=== PATIENT | male | born 1965 | race Caucasian/White ===

== ENCOUNTER 2018-05-29 19:35 | Inpatient (IN) ==
[2018-05-29] MEDS ORDERED: ONDANSETRON INJ 2 MG/ML 2 ML VIAL IV STA (20:00)
[2018-05-29] MEDS ORDERED: SODIUM CHLORIDE 0.9% 500 ML IV STA (20:00)
[2018-05-29] MEDS ORDERED: MoRPHine SULFATE 4 MG/ML 1 ML CARP\\VIAL IV STA ×2 (20:00→22:53)
[2018-05-29 20:16] LABS: Basophils # (auto) 0.02 K/uL (0-0.2); Basophils % (auto) 0.2 %; Eosinophils # (auto) 0.17 K/uL (0-0.5); Eosinophils % (auto) 1.3 %; Hematocrit (blood only) 39.8 % (42-52); Hemoglobin 13.5 g/dL (14.0-18.0); Immature Granulocytes # (auto) 0.03 K/uL (0.00-0.02); Immature Granulocytes % (auto) 0.2 %; Lymphocytes # (auto) 1.61 K/uL (1.2-3.4); Lymphocytes % (auto) 12.1 %; Mean Corpuscular Hgb Conc 33.9 g/dL (32-36); Mean Corpuscular Volume 92.1 fL (80-100); Mean Platelet Volume 9.3 fL (7.4-10.4); Monocytes # (auto) 0.78 K/uL (0.11-0.59); Monocytes % (auto) 5.9 %; Neutrophils % (auto) 80.3 %; Platelet Count 237 K/uL (130-400); RDW Coefficient of Variation 12.5 % (11.5-14.5); RDW Standard Deviation 42.4 fL (36.4-46.3); Red Blood Count 4.32 M/uL (4.7-6.1); White Blood Count 13.31 K/uL (4.8-10.8)
[2018-05-29 20:27] LABS: Partial Thromboplastin Ratio 1.2; Partial Thromboplastin Time 29.9 Seconds (21.0-31.0); Prothrombin Time 10.5 Seconds (9.0-12.0)
[2018-05-29 20:33] LABS: Alanine Aminotransferase 21 U/L (12-78); Albumin Level 3.5 gm/dl (3.4-5.0); Aspartate Aminotransferase 15 U/L (15-37); Blood Urea Nitrogen 17 mg/dl (7-18); Carbon Dioxide 27 mmol/L (21-32); Chloride 100 mmol/L (98-107); Creatinine Clr Calc Pharmacy 120.2 ml/min; Est GFR (Non-African American) 88.9; Glucose 95 mg/dl (70-99); Magnesium 2.2 mg/dl (1.8-2.4); Potassium 3.8 mmol/L (3.5-5.1); Sodium 134 mmol/L (136-145)
[2018-05-29 20:38] LABS: Albumin Globulin Ratio 0.8 (0.9-2); Alkaline Phosphatase 64 U/L (45-117); Bilirubin,Total 0.7 mg/dl (0.2-1); Globulin 4.4 gm/dl (2.5-4.0); Total Protein 7.9 gm/dl (6.4-8.2); Troponin I < 0.015 ng/ml (0-0.045)
--- NOTE | 2018-05-29 20:52 | Emergency Department Note ---
Entered by Parveen Cast acting as a scribe for Jose Luis Grimaldo MD History of Present Illness General Chief complaint: Chest Pain Stated complaint: RECENT SURGERY ON KNEE - SPASMS IN CHEST AND BACK Time Seen by Provider: 05/29/18 19:51 Source: patient Limitations: no limitations History of Present Illness Onset (ago): day(s) 3 Location: abdomen Radiation: back Pain Consistency: + intermittent Exacerbated By: + movement and + other (laying down) Associated symptoms: + denies other symptoms (burning with urination) and + shortness of breath The patient is a 53 year old male who presents to the Emergency Room with complaints of intermittent muscle spasms starting 3 days ago. He states he has been having muscle spasms near his sternum and in his lower back. He notes the muscle spasms started when he started physical therapy. He states he did not get sleep the night he got the spasms. He states he woke up the next morning and was hardly breathing. The patient states the pain is worse with movement and is the worst when he is laying down. The patient notes when he is having the muscle spasms he feels SOB. He notes he is breathing shallower when he does not have the spasms. The patient notes he has not been coughing that much. He states he took muscle relaxers and it did not seem to help. He denies burning with urination. The patient had left knee meniscus surgery [address] Cobos in [place]. The patient states he has been getting better, but the knee is still tight. He notes he had his 4th physical therapy session today. He notes he got prescribed oxycodone after the surgery. He states he has not been taking much oxycodone. Home Medications Home Medications Medication Instructions Recorded Confirmed Type cyclobenzaprine 5 mg PO TID PRN #30 tab 02/07/18 05/29/18 Rx ibuprofen 400 mg PO BID PRN 05/29/18 05/29/18 History oxycodone-acetaminophen 1 tab PO BID PRN 05/29/18 05/29/18 History Allergies Allergy/AdvReac Type Severity Reaction Status Date / Time No Known Allergies Allergy Verified 05/29/18 20:38 Past Med/Surg History Medical History Sleep apnea Surgical History H/O left knee surgery Family History Other Cancer Lung disease Social History marital status: Current Living Situation: Spouse Feels Safe at Home: Yes Smoking Status: Never smoker Review of Systems See HPI for pertinent positives & negatives. and A total of 10 systems reviewed and were otherwise negative Physical Exam Vital Signs Vital Signs - 24 hr 05/29/18 19:36 05/29/18 19:38 05/29/18 19:57 Temperature 36.9 C Temperature Source Oral Sepsis Recent Fever Within 48 Hours No Sepsis New/Unexplained Change in Mental Status No Sepsis Action Taken by Nursing No Action Required Pulse Rate 106 H Pulse Rate [Finger] 98 H Pulse Rhythm Regular Pulse Strength Normal Respiratory Rate 18 25 H Respiratory Effort / Characteristics Non-Labored Spontaneous Respiratory Depth Normal Respiratory Pattern Regular Blood Pressure 151/88 H Blood Pressure [Right Arm] 153/88 H Blood Pressure Mean 109 Blood Pressure Mean [Right Arm] 109 Blood Pressure Position Sitting Pulse Oximetry 97 96 Oxygen Delivery Method Room Air Room Air Room Air 05/29/18 20:00 05/29/18 21:46 05/30/18 00:13 Temperature Temperature Source Sepsis Recent Fever Within 48 Hours Sepsis New/Unexplained Change in Mental Status Sepsis Action Taken by Nursing Pulse Rate Pulse Rate [Finger] 108 H 97 H Pulse Rhythm Pulse Strength Respiratory Rate 33 H Respiratory Effort / Characteristics Respiratory Depth Respiratory Pattern Blood Pressure Blood Pressure [Right Arm] 110/78 108/66 Blood Pressure Mean Blood Pressure Mean [Right Arm] 88 80 Blood Pressure Position Pulse Oximetry 94 96 Oxygen Delivery Method Room Air Room Air Room Air GENERAL: Patient is in no acute distress. HEENT: No acute trauma, normocephalic atraumatic, mucous membranes moist, no nasal congestion, no scleral icterus. NECK: No stridor, no adenopathy, no meningismus, trachea is midline. LUNGS: Clear to auscultation bilaterally, no wheeze, no rhonchi, breath sounds equal. HEART: Subtle systolic murmur. Tachycardic rate. Regular rhythm. CHEST: Some tenderness to right lower anterior chest wall, pain does seem to worsen with position change. ABDOMEN: Soft, nontender, bowel sounds positive, no hernias, no peritonitis. EXTREMITIES: No cyanosis or edema, full range of motion of all the joints without pain or difficulty, no signs for acute trauma. NEUROLOGIC: Oriented x 3, no acute motor or sensory deficits, no focal weakness. SKIN: No rash, no jaundice, no diaphoresis. Course 1951: Past medical records reviewed. The patient was evaluated in room B8, and a complete history and physical examination were performed. 2123: I reviewed the patient's case with Dr. Garcia [facility] Hospitalist. He will evaluate the patient for further management. Administered Medications Ioversol (Optiray 320 125ml) 115 ml IV ONCE PRN PRN Reason: Interaction Checking Stop: 06/02/18 20:52 Last Admin: 05/29/18 20:55 Dose: 115 ml Discontinued Medications Cyclobenzaprine HCl (Flexeril) 10 mg PO NOW STA Stop: 05/30/18 00:16 Last Admin: 05/30/18 00:20 Dose: 10 mg Heparin Sodium (Porcine) (Heparin Iv Bolus) Confirm Administered Dose 10,000 units .ROUTE .STK-MED ONE Stop: 05/29/18 21:35 Last Admin: 05/29/18 21:42 Dose: 6,000 units Heparin Sodium/Dextrose () 1 ea N/A NOW STA; Protocol Stop: 05/29/18 21:23 Last Admin: 05/29/18 21:44 Dose: Not Given Heparin Sodium/Dextrose (Heparin Sodium/Dextrose) Confirm Administered Dose 25, 000 units IV .STK-MED ONE Stop: 05/29/18 21:35 Last Admin: 05/29/18 21:42 Dose: 1,700 units Hydromorphone HCl (Dilaudid) 1 mg IV NOW STA Stop: 05/30/18 00:16 Last Admin: 05/30/18 00:20 Dose: 1 mg Sodium Chloride (Nss) 500 mls @ 999 mls/hr IV .Q31M STA Stop: 05/29/18 20:30 Last Infusion: 05/29/18 21:04 Dose: 0 mls/hr Admin: 05/29/18 20:32 Dose: 999 mls/hr Morphine Sulfate (Morphine Sulfate) 4 mg IV NOW STA Stop: 05/29/18 20:01 Last Admin: 05/29/18 20:33 Dose: 4 mg Morphine Sulfate (Morphine Sulfate) 4 mg IV NOW STA Stop: 05/29/18 22:54 Last Admin: 05/29/18 22:58 Dose: 4 mg Ondansetron HCl (Zofran) 4 mg IV NOW STA Stop: 05/29/18 20:01 Last Admin: 05/29/18 20:33 Dose: 4 mg Medical Decision Making Differential Diagnosis PE, musculoskeletal injury, pneumonia, electrolyte imbalance, anemia, UTI, renal colic, and nerve impingement. Medical Records Attestation: I reviewed the patient's medical records. Home Medications Current Medication List: was personally reviewed by me Laboratory Data Attestation: I reviewed the patient's lab results. Result diagrams: 05/29/18 19:52 05/29/18 19:52 Lab Results 05/29/18 05/29/18 05/29/18 Range/Units 19:52 19:52 19:52 WBC 13.31 H (4.8-10.8) K/uL RBC 4.32 L (4.7-6.1) M/uL Hgb 13.5 L (14.0-18.0) g/dL Hct 39.8 L (42-52) % MCV 92.1 (80-100) fL MCH 31.3 (25-34) pg MCHC 33.9 (32-36) g/dL RDW Std Deviation 42.4 (36.4-46.3) fL RDW Coeff of Russel 12.5 (11.5-14.5) % Plt Count 237 (130-400) K/uL MPV 9.3 (7.4-10.4) fL Immature Gran % (Auto) 0.2 % Neut % (Auto) 80.3 % Lymph % (Auto) 12.1 % Bladen % (Auto) 5.9 % Eos % (Auto) 1.3 % Baso % (Auto) 0.2 % Immature Gran # (Auto) 0.03 H (0.00-0.02) K/uL Neut # (Auto) 10.70 H (1.4-6.5) K/uL Lymph # (Auto) 1.61 (1.2-3.4) K/uL Bladen # (Auto) 0.78 H (0.11-0.59) K/uL Eos # (Auto) 0.17 (0-0.5) K/uL Baso # (Auto) 0.02 (0-0.2) K/uL PT 10.5 (9.0-12.0) Seconds INR 1.0 (0.9-1.1) APTT 29.9 (21.0-31.0) Seconds PTT Ratio 1.2 Sodium 134 L (136-145) mmol/L Potassium 3.8 (3.5-5.1) mmol/L Chloride 100 (98-107) mmol/L Carbon Dioxide 27 (21-32) mmol/L Anion Gap 7.0 (3-11) BUN 17 (7-18) mg/dl Creatinine 0.98 (0.6-1.4) mg/dl Est Cr Clr Drug Dosing 120.2 ml/min Est GFR ( Amer) 103.0 Est GFR (Non-Af Amer) 88.9 BUN/Creatinine Ratio 17.0 (10-20) Glucose 95 (70-99) mg/dl Calcium 9.0 (8.5-10.1) mg/dl Magnesium 2.2 (1.8-2.4) mg/dl Total Bilirubin 0.7 (0.2-1) mg/dl AST 15 (15-37) U/L ALT 21 (12-78) U/L Alkaline Phosphatase 64 (45-117) U/L Troponin I < 0.015 (0-0.045) ng/ml Total Protein 7.9 (6.4-8.2) gm/dl Albumin 3.5 (3.4-5.0) gm/dl Globulin 4.4 H (2.5-4.0) gm/dl Albumin/Globulin Ratio 0.8 L (0.9-2) Urine Color Urine Appearance (Clear) Urine pH (4.5-7.5) Ur Specific Anchor (1.000-1.030) Urine Protein (Negative) Urine Glucose (UA) (Negative) Urine Ketones (Negative) Urine Blood (Negative) Urine Nitrite (Negative) Urine Bilirubin (Negative) Urine Urobilinogen (Negative) Ur Leukocyte Esterase (Negative) Urine RBC (0-4) /hpf Urine WBC (0-5) /hpf Ur Epithelial Cells (0-5) /lpf Urine Bacteria (Negative) 05/29/18 Range/Units 22:10 WBC (4.8-10.8) K/uL RBC (4.7-6.1) M/uL Hgb (14.0-18.0) g/dL Hct (42-52) % MCV (80-100) fL MCH (25-34) pg MCHC (32-36) g/dL RDW Std Deviation (36.4-46.3) fL RDW Coeff of Russel (11.5-14.5) % Plt Count (130-400) K/uL MPV (7.4-10.4) fL Immature Gran % (Auto) % Neut % (Auto) % Lymph % (Auto) % Bladen % (Auto) % Eos % (Auto) % Baso % (Auto) % Immature Gran # (Auto) (0.00-0.02) K/uL Neut # (Auto) (1.4-6.5) K/uL Lymph # (Auto) (1.2-3.4) K/uL Bladen # (Auto) (0.11-0.59) K/uL Eos # (Auto) (0-0.5) K/uL Baso # (Auto) (0-0.2) K/uL PT (9.0-12.0) Seconds INR (0.9-1.1) APTT (21.0-31.0) Seconds PTT Ratio Sodium (136-145) mmol/L Potassium (3.5-5.1) mmol/L Chloride (98-107) mmol/L Carbon Dioxide (21-32) mmol/L Anion Gap (3-11) BUN (7-18) mg/dl Creatinine (0.6-1.4) mg/dl Est Cr Clr Drug Dosing ml/min Est GFR ( Amer) Est GFR (Non-Af Amer) BUN/Creatinine Ratio (10-20) Glucose (70-99) mg/dl Calcium (8.5-10.1) mg/dl Magnesium (1.8-2.4) mg/dl Total Bilirubin (0.2-1) mg/dl AST (15-37) U/L ALT (12-78) U/L Alkaline Phosphatase (45-117) U/L Troponin I (0-0.045) ng/ml Total Protein (6.4-8.2) gm/dl Albumin (3.4-5.0) gm/dl Globulin (2.5-4.0) gm/dl Albumin/Globulin Ratio (0.9-2) Urine Color Yellow Urine Appearance Clear (Clear) Urine pH 5.0 (4.5-7.5) Ur Specific Anchor <= 1.005 (1.000-1.030) Urine Protein Negative (Negative) Urine Glucose (UA) Negative (Negative) Urine Ketones Trace H (Negative) Urine Blood Trace H (Negative) Urine Nitrite Negative (Negative) Urine Bilirubin Negative (Negative) Urine Urobilinogen Negative (Negative) Ur Leukocyte Esterase Negative (Negative) Urine RBC 0-4 (0-4) /hpf Urine WBC 0-5 (0-5) /hpf Ur Epithelial Cells 20-30 H (0-5) /lpf Urine Bacteria 1+ H (Negative) Imaging Data Radiologist's Impression: Radiology results as stated below per my review and the radiologist's interpretation: CT angio chest PE protocol CT DOSE: 695.77 mGy.cm HISTORY: Pulmonary embolus PE TECHNIQUE: Multiaxial CT images of the chest were performed following the intravenous administration of contrast to evaluate the pulmonary arteries. Maximal intensity projection images were also obtained. A dose lowering technique was utilized adhering to the principles of ALARA. COMPARISON STUDY: None. FINDINGS: Study is positive for bilateral pulmonary emboli. On the right there are emboli involving the right upper as well as right lower lobe distributions. On the left there are multiple emboli involving the left basilar arterial distribution. There are also findings of smaller emboli involving the left upper lobe distribution. Area the thoracic aorta is normal in course and caliber. There is no evidence for a central or saddle pulmonary embolus. There are bilateral pleural effusions. There are infiltrative changes in the right and to lesser extent left base. IMPRESSION: 1. Study is positive for bilateral rather extensive pulmonary emboli. 2. No evidence for a central/saddle pulmonary embolus. 3. Right and to lesser extent left pleural effusion. 4. Bibasilar parenchymal infiltrative change. The above report was generated using voice recognition software. It may contain grammatical, syntax or spelling errors. Electronically signed by: Felipe Snell M.D. 05/29/2018 9:08 PM ECG Data Attestation: I personally reviewed and interpreted this ECG as follows: Indication: chest pain Rate (beats per minute): 104 Rhythm: sinus tachycardia Findings: no PVC and no ST elevation Blood Pressure Blood Pressure Findings: Elevated blood pressure Blood Pressure Disposition: further management by hospitalist MDM Narrative There is a mild leukocytosis, this could be consistent with infection or just his pain. No worrisome anemia. No significant electrolyte abnormality, kidney failure or hepatitis. Urinalysis does not show infection, some contamination was noted. EKG shows a sinus tachycardia, no acute ischemia. Cardiac enzyme testing x1 is not consistent with acute cardiac injury. There is no coagulopathy. Chest CT shows bilateral pulmonary emboli. The patient received IV saline, IV morphine and IV Zofran. Once the findings of pulmonary emboli were noted, the patient was started on IV heparin as a drip after an IV heparin bolus. I spoke to the patient and case management. I talked with the on-call hospitalist. Hospitalization is warranted. I do think the patient's complaints are explained by the pulmonary emboli. Impression & Plan Bilateral pulmonary embolism Critical Care Time I have personally spent greater than 35 minutes of critical care time in the direct management of this patient. This includes bedside care, interpretation of diagnostic studies, and testing, discussion with consultants, patient, and family members, and other required patient management activities. This 35 minutes is in excess of all separately billable procedures. Critical Care Time: Yes Total Critical Care Time: 35 Discharge Plan Visit Data Chief Complaint: Chest Pain Stated Complaint: RECENT SURGERY ON KNEE - SPASMS IN CHEST AND BACK ED Provider: Jose Luis Grimaldo Discharge Problem: Bilateral pulmonary embolism Patient Disposition: Being Evaluated by Hospitalist Forms Stand Alone Forms: Call Back Authorization, My [facility] Prescriptions Prescriptions: No Action cyclobenzaprine 5 mg tablet 5 mg PO TID PRN (Reason: muscle spasm) Qty: 30 RF: 0 ibuprofen 200 mg Tablet 400 mg PO BID PRN (Reason: Pain) RF: 0 oxycodone-acetaminophen 5-325 mg tablet 1 tab PO BID PRN (Reason: Pain) RF: 0 Referrals Referrals: William Mccartney [Primary Care Provider] - The scribe's documentation has been prepared under my direction and personally reviewed by me in its entirety. I confirm that the note above accurately reflects all work, treatment, procedures, and medical decision making performed by me.
[2018-05-29] MEDS ORDERED: OPTIRAY 320 125ml IV PRN (20:53)
--- NOTE | 2018-05-29 21:10 | CT Scan Report ---
CT angio chest PE protocol CT DOSE: 695.77 mGy.cm HISTORY: Pulmonary embolus PE TECHNIQUE: Multiaxial CT images of the chest were performed following the intravenous administration of contrast to evaluate the pulmonary arteries. Maximal intensity projection images were also obtaine d. A dose lowering technique was utilized adhering to the principles of ALARA. COMPARISON STUDY: None. FINDINGS: Study is positive for bilateral pulmonary emboli. On the right there are emboli involving t he right upper as well as right lower lobe distributions. On the left there are multiple emboli invol ving the left basilar arterial distribution. There are also findings of smaller emboli involving the left upper lobe distribution. Area the thoracic aorta is normal in course and caliber. There is no ev idence for a central or saddle pulmonary embolus. There are bilateral pleural effusions. There are in filtrative changes in the right and to lesser extent left base. IMPRESSION: 1. Study is positive for bilateral rather extensive pulmonary emboli. 2. No evidence for a central/saddle pulmonary embolus. 3. Right and to lesser extent left pleural effusion. 4. Bibasilar parenchymal infiltrative change. The above report was generated using voice recognition software. It may contain grammatical, syntax or spelling errors. Electronically signed by: Felipe Snell M.D. 05/29/2018 9:08 PM
[2018-05-29] MEDS ORDERED: HEPARIN 25000 UNIT/500 ML D5W IV ONE (21:34)
[2018-05-29] MEDS ORDERED: HEPARIN SOD (PORCINE) 1000 UNIT/ML 10 ML VIAL ONE (21:34)
[2018-05-29 22:36] LABS: Appearance Urine Clear (Clear); Bilirubin Urine Negative (Negative); Blood Urine Trace (Negative); Color Urine Yellow; Glucose Urine UA Negative (Negative); Ketones Urine Trace (Negative); Leukocyte Esterase Urine Negative (Negative); Nitrite Urine Negative (Negative); Protein Urine Negative (Negative); Specific Gravity Urine <= 1.005 (1.000-1.030); Urobilinogen Urine Negative (Negative)
[2018-05-29 22:44] LABS: Bacteria Urine 1+ (Negative); Epithelial Cell Urine 20-30 /lpf (0-5); RBC Urine 0-4 /hpf (0-4); WBC Urine 0-5 /hpf (0-5)
[2018-05-30] MEDS ORDERED: CYCLOBENZAPRINE HCL 10 MG TAB PO STA (00:15)
[2018-05-30] MEDS ORDERED: HYDROmorphone INJ 1 MG/ML SYRINGE IV STA (00:15)
[2018-05-30] MEDS: HEPARIN STANDARD DEXTROSE 25,000 UNITS/500 ML IV SCH ×2 (01:15→12:31)
[2018-05-30] MEDS ORDERED: POLYETHYLENE (MIRALAX) 17 GM PACK PO PRN (01:38)
[2018-05-30] MEDS ORDERED: NITROGLYCERIN SL 0.4 MG/TAB TAB SL PRN (01:38)
[2018-05-30] MEDS ORDERED: ONDANSETRON INJ 2 MG/ML 2 ML VIAL IV PRN (01:38)
[2018-05-30] MEDS ORDERED: Heparin IV Standard *NO* Bolus ONE (01:38)
--- NOTE | 2018-05-30 02:27 | History and Physical Report ---
DATE OF ADMISSION: 05/30/2018 CHIEF COMPLAINT: Shortness of breath and chest muscle spasms, found to be in acute PE. HISTORY OF PRESENT ILLNESS: This is a 53-year-old male with past medical history of significant obstructive sleep apnea on CPAP, no other medical problems, recently on 05/17/2018 had left knee surgery for meniscal tear at [facility], after that he did fine. He went to physical therapy. He just finished his physical therapy on Tuesday. He was walking okay, but since Tuesday, he was feeling he was getting spasms in his chest and also short of breath. Intially worried about blood clots but as his spasms are coming and going they did not come to the hospital but today it became so severe and the pain became so worse, patient was brought into the ER and a CAT scan showing bilateral extensive PE, but there is no saddle embolus. The patient received significant pain medications and also still complains mainly of spasms. His sitting,says lying down is making spasms worse.Has some mild dry cough from his dryness in throat. No nausea, no vomiting, no headaches, no blurred visions, no earache, no runny nose, no sore throat, no difficulty swallowing. Appetite is okay. No night sweats. No recent weight gain or weight loss. No abdominal pain. Normal bowel and bladder movements. No blood in the stools, no black stools, no blood in the urine. Left knee surgical site is healing. No erythema is seen. No lower extremity edema seen. ALLERGIES: No known drug allergies. PAST MEDICAL HISTORY: As mentioned above. PAST SURGICAL HISTORY: Left knee arthroscopy, EGD, history of vasectomy, cyst removed from the head. MEDICATIONS: The patient currently on cyclobenzaprine 5 mg p.o. t.i.d. p.r.n., ibuprofen 400 mg p.o. b.i.d. p.r.n., oxycodone/acetaminophen 1 tablet p.o. b.i.d. p.r.n. FAMILY HISTORY: Significant for father had prostate cancer and the father had diverticulitis. Mother has arthritis. Daughter has diverticulitis. Uncle has prostate cancer. SOCIAL HISTORY: No smoking history. Alcohol occasional. No drug use. REVIEW OF SYMPTOMS: As per HPI. Rest of the symptoms negative. PHYSICAL EXAMINATION: GENERAL: The patient is obese, not in acute distress. VITAL SIGNS: Temperature 36.9, pulse 97, respiratory rate 30, blood pressure 108/66, oxygen 96% room air. HEENT: No pallor, no icterus. Pupils equal, round, and react to light. NECK: No JVD, no neck masses, no carotid bruit. CARDIOVASCULAR: S1, S2 heard. Regular rate and rhythm. Tachycardia. No murmurs. RESPIRATORY SYSTEM: Normal AP diameter. No accessory muscle use. No wheezing, no crackles. ABDOMEN: Soft, bowel sounds present. Nontender. No distention. CENTRAL NERVOUS SYSTEM: Cranial nerves II-XII grossly intact. Nonfocal. EXTREMITIES: Left knee arthroscopy site sutures seen. No erythema or drainage seen. No edema or erythema in the lower extremities. LABS: WBC 13.3, hemoglobin 13.5, hematocrit 39.8, platelets 237. PT 10.5, INR 1, APTT 29.9. Sodium 134, potassium 3.8, chloride 100, bicarbonate 27, BUN 17, creatinine 0.98, serum glucose 95, calcium 9, magnesium 2.2, total bilirubin 0.7, AST 15, ALT 21, alkaline phosphatase 64. Troponin I less than 0.015. Urinalysis, trace blood and ketones. CT of the chest is positive for bilateral extensive pulmonary emboli. No evidence for central or saddle pulmonary embolus, right and to lesser extent left pleural effusion, bibasilar parenchymal infiltrate change. EKG: Sinus tachycardia at a rate of 104. No acute ST changes seen. ASSESSMENT AND PLAN: This 53-year-old male presents due to chest spasms and shallow breathing and found to have extensive bilateral pulmonary embolism. 1. Extensive bilateral pulmonary embolism. No saddle embolus. Started on IV heparin in the Emergency Room, which we will continue. We will start Coumadin from tomorrow. Left knee procedure done on 05/17/2018 could be from post-procedure. Needs anticoagulation for 3-6 months. Hypercoagulable workup as outpatient as per family doctor. Having significant muscle spasms and pain, we will put him on IV Dilaudid as needed and Flexeril as needed. Closely monitor in the tele floor. He is saturating okay. 2. Obstructive sleep apnea. On CPAP at bedtime. 3. Left knee procedure for meniscal tear, has follow up with Dr. Cobos next week. Will consider consulting Dr. Cobos while patient is still in the hospital. 4. Deep vein thrombosis prophylaxis, on IV heparin. DISPOSITION: Closely monitor in tele floor. Level I full code. MTDD
[2018-05-30 03:59] LABS: Basophils # (auto) 0.03 K/uL (0-0.2); Basophils % (auto) 0.2 %; Eosinophils # (auto) 0.13 K/uL (0-0.5); Eosinophils % (auto) 1.1 %; Hematocrit (blood only) 39.7 % (42-52); Hemoglobin 13.4 g/dL (14.0-18.0); Immature Granulocytes # (auto) 0.02 K/uL (0.00-0.02); Immature Granulocytes % (auto) 0.2 %; Lymphocytes # (auto) 2.24 K/uL (1.2-3.4); Lymphocytes % (auto) 18.1 %; Mean Corpuscular Hgb Conc 33.8 g/dL (32-36); Mean Platelet Volume 8.9 fL (7.4-10.4); Monocytes # (auto) 0.98 K/uL (0.11-0.59); Monocytes % (auto) 7.9 %; Neutrophils # (auto) 8.96 K/uL (1.4-6.5); Neutrophils % (auto) 72.5 %; Platelet Count 239 K/uL (130-400); RDW Coefficient of Variation 12.6 % (11.5-14.5); RDW Standard Deviation 42.9 fL (36.4-46.3); Red Blood Count 4.27 M/uL (4.7-6.1); White Blood Count 12.36 K/uL (4.8-10.8)
[2018-05-30 04:15] LABS: INR 1.1 (0.9-1.1); Partial Thromboplastin Ratio 1.9; Prothrombin Time 10.9 Seconds (9.0-12.0)
[2018-05-30 04:17] LABS: BUN Creatinine Ratio 15.3 (10-20); Calcium 8.6 mg/dl (8.5-10.1); Creatinine Clr Calc Pharmacy 103.7 ml/min; Est GFR (African American) 86.7; Est GFR (Non-African American) 74.8; Magnesium 2.2 mg/dl (1.8-2.4)
[2018-05-30 04:18] LABS: Partial Thromboplastin Time 49.4 Seconds (21.0-31.0)
[2018-05-30] MEDS: HYDROmorphone INJ 1 MG/ML SYRINGE IV PRN ×4 (04:19→19:16)
[2018-05-30] MEDS: CYCLOBENZAPRINE HCL 10 MG TAB PO PRN ×3 (05:10→20:34)
[2018-05-30] MEDS: OXYCODONE/ACETAMINOPHEN 5mg/325mg TAB PO PRN ×3 (06:20→22:33)
[2018-05-30 10:22] LABS: Partial Thromboplastin Ratio 1.9
[2018-05-30 10:32] LABS: Partial Thromboplastin Time 48.8 Seconds (21.0-31.0)
--- NOTE | 2018-05-30 11:20 | Ultrasound Report ---
US venous doppler LE CLINICAL HISTORY: 53 years-old Male presenting with pulmonary embolism, evaluate for dvt. TECHNIQUE: Real-time grayscale and color and spectral Doppler ultrasound imaging of the veins of the bilateral lower extremities was performed. Compression and augmentation were also utilized. COMPARISON: None. FINDINGS: RIGHT: Common femoral vein: Patent. Greater saphenous vein (superficial): Patent. Deep femoral vein: Patent. Femoral vein: Patent. Popliteal vein: Patent. Calf veins: Patent. LEFT: Common femoral vein: Patent. Greater saphenous vein (superficial): Patent. Deep femoral vein: Patent. Femoral vein: Patent. Popliteal vein: Patent. Calf veins: Filling defect consistent with thrombus in the left posterior tibial vein and one of two duplicated left peroneal veins. Other: None. IMPRESSION: 1. Acute deep venous thrombosis in the left posterior tibial vein and one of two duplicated left per mir veins. 2. No deep venous thrombosis in the right lower extremity. Electronically signed by: Joseph Lobo M.D. 05/30/2018 11:19 AM
[2018-05-30] MEDS: WARFARIN SOD 5 MG TAB PO SCH (15:35)
[2018-05-30] MEDS ORDERED: ENOXAPARIN 150 MG/ML SYR SQ SCH (18:45)
[2018-05-30] MEDS ORDERED: TEMAZEPAM 15 MG CAPSULE PO PRN (19:22)
[2018-05-30] MEDS: LIDOCAINE 5% 1 PATCH TD SCH (20:34)
[2018-05-30] MEDS: ACETAMINOPHEN 325 MG TAB PO PRN (21:21)
[2018-05-30] MEDS: HYDROmorphone INJ 2 MG/ML SYR/VIAL IV PRN (22:31)
[2018-05-30] MEDS ORDERED: ACETAMINOPHEN 65 ML IV PRN (23:45)
[2018-05-31] MEDS: HYDROmorphone INJ 2 MG/ML SYR/VIAL IV PRN ×3 (05:59→16:03)
[2018-05-31] MEDS ORDERED: Heparin IV Standard *NO* Bolus ONE (05:59)
[2018-05-31] MEDS: CYCLOBENZAPRINE HCL 10 MG TAB PO PRN (05:59)
[2018-05-31 06:35] LABS: Hematocrit (blood only) 40.5 % (42-52); Hemoglobin 13.6 g/dL (14.0-18.0); Mean Corpuscular Volume 92.3 fL (80-100); Platelet Count 215 K/uL (130-400); RDW Coefficient of Variation 12.6 % (11.5-14.5); RDW Standard Deviation 42.6 fL (36.4-46.3); Red Blood Count 4.39 M/uL (4.7-6.1)
[2018-05-31 06:37] LABS: Mean Corpuscular Hgb Conc 33.6 g/dL (32-36)
[2018-05-31 06:44] LABS: INR 1.1 (0.9-1.1); Partial Thromboplastin Ratio 1.4; Partial Thromboplastin Time 35.9 Seconds (21.0-31.0); Prothrombin Time 11.2 Seconds (9.0-12.0)
[2018-05-31] MEDS: HEPARIN STANDARD DEXTROSE 25,000 UNITS/500 ML IV SCH ×2 (06:54→20:15)
--- NOTE | 2018-05-31 07:24 | XRay Report ---
XR chest 1V portable CLINICAL HISTORY: 53 years-old Male presenting with hemoptysis. TECHNIQUE: Portable upright AP view of the chest was obtained. COMPARISON: CTA from 05/29/2018. FINDINGS: Cardiac silhouette enlarged. Low lung volumes with bibasilar hazy opacities, which are rather extensi ve and greater on the right. Bilateral pleural effusions also greater on the right. No pneumothorax. Degenerative changes of the thoracic spine. Upper abdomen normal. IMPRESSION: 1. Low lung volumes with extensive bibasilar opacities greater on the right. This could represent ev olving pulmonary infarcts or pulmonary hemorrhage. 2. Pleural effusions greater on the right. Electronically signed by: Joseph Lobo M.D. 05/31/2018 7:23 AM
--- NOTE | 2018-05-31 09:19 | Pain Management Consultation ---
Date of Consultation May 31, 2018 Assessment & Plan (1) Pulmonary embolism: Flexeril was discontinued and Baclofen was ordered in place to see if it does provide better relief of spasms for the patient. Continue Percocet 5/325mg for pain relief. Continue Dilaudid IV PRN breakthrough pain. History of Present Illness Reason for Consultation: Chest pain Attending Physician: Shawna Melendez MD History of Present Illness This is a 53 year old white male that has been seen in consultation for chest pain. Patient did has a left knee arthroscopy 05/17/18 for a meniscus tear. He started to develop chest pain. He describes a sharp spasming sensation along the right anterior inferior chest wall radiating to the right flank. The pain is ranging from 4-10/10. He has been placed on IV Heparin and started on Coumadin. He has required Dilaudid 3mg IV and Percocet 5/325mg TID over the past 24 hours. He has Flexeril ordered for muscle spasm. He states that the spasming pain is causing difficulty sleeping. He reports an occasional cough. He did cough up a blood clot this morning. SOB has improved. Case discussed with Dr. Dalia Cates Pain Assessment [facility] Combined Pain Scale: 6-Mod to Severe - Significant limitations of ADLs. Hard to do anything Allergies Allergy/AdvReac Type Severity Reaction Status Date / Time No Known Allergies Allergy Verified 05/29/18 20:38 Home Medications Home Medications Medication Instructions Recorded Confirmed Type cyclobenzaprine 5 mg PO TID PRN #30 tab 02/07/18 05/29/18 Rx ibuprofen 400 mg PO BID PRN 05/29/18 05/29/18 History oxycodone-acetaminophen 1 tab PO BID PRN 05/29/18 05/29/18 History Patient History Medical History Pulmonary embolism (Acute) Sleep apnea (Chronic) Surgical History H/O left knee surgery (Acute) arthroplasty Family History Other Cancer Lung disease Social History marital status: Current Living Situation: Spouse Other Information That Helps Us Care for You: No Feels Safe at Home: Yes Safety Concerns: Feels Safe At This Time Smoking Status: Never smoker Do You Dip or Chew Tobacco: No Second Hand Exposure: No Tobacco Cessation Education Requested by Patient: No Hx Alcohol Use: No Hx Substance Use: No Beliefs That Will Affect Care: Latter-Day Latter-Day Beliefs: Sikhism Preferred Language: Telugu Communication Ability: Effective Hat Finisher Required: No Review of Systems Denies complaints related to 10 point organ system review. Physical Exam 2 Vital Signs (Past 24 Hours): Last Vital Signs Temp 36.8 C 05/31/18 07:49 Pulse 86 05/31/18 07:49 Resp 16 05/31/18 07:49 BP 124/62 05/31/18 07:49 Pulse Ox 98 05/31/18 07:49 Physical Exam: GENERAL: Speech and cognition is intact. Mood and affect is appropriate. In no acute distress. HEAD: Normocephalic; atraumatic. EYES: Pupils are round, equal, and reactive to light; EOM intact. CHEST: Regular chest respiration and excursion. There is moderate tenderness along the right anterior inferior chest wall. There are no palpation trigger points noted. No costochondral tenderness noted. No focal rib tenderness. Negative AP/lateral compression testing. NEURO: CN II-XII grossly intact with no focal deficits noted. SKIN: No lesions, erythema, or rashes noted. Results & Data Diagnostic Findings CT angio chest PE protocol CT DOSE: 695.77 mGy.cm HISTORY: Pulmonary embolus PE TECHNIQUE: Multiaxial CT images of the chest were performed following the intravenous administration of contrast to evaluate the pulmonary arteries. Maximal intensity projection images were also obtained. A dose lowering technique was utilized adhering to the principles of ALARA. COMPARISON STUDY: None. FINDINGS: Study is positive for bilateral pulmonary emboli. On the right there are emboli involving the right upper as well as right lower lobe distributions. On the left there are multiple emboli involving the left basilar arterial distribution. There are also findings of smaller emboli involving the left upper lobe distribution. Area the thoracic aorta is normal in course and caliber. There is no evidence for a central or saddle pulmonary embolus. There are bilateral pleural effusions. There are infiltrative changes in the right and to lesser extent left base. IMPRESSION: 1. Study is positive for bilateral rather extensive pulmonary emboli. 2. No evidence for a central/saddle pulmonary embolus. 3. Right and to lesser extent left pleural effusion. 4. Bibasilar parenchymal infiltrative change. The above report was generated using voice recognition software. It may contain grammatical, syntax or spelling errors. Electronically signed by: Felipe Snell M.D. 05/29/2018 9:08 PM
[2018-05-31] MEDS: BACLOFEN 10 MG TAB PO SCH ×3 (09:31→21:42)
--- NOTE | 2018-05-31 12:57 | Hospitalist Progress Note ---
Date of Service May 31, 2018 Assessment & Plan (1) Bilateral pulmonary embolism: (2) DVT of lower limb, acute: Provoked DVT from recent left knee surgery for meniscal tear CTA chest showed bilateral rather extensive pulmonary emboli. Doppler U/S showed acute deep venous thrombosis in the left posterior tibial vein and one of two duplicated left peroneal veins Was starting on Lovenox therapeutic dose, that was changed to heparin drip after pt developed hemoptysis from coughing Already starting on coumadin Anticoagulant risk discussed with patient such as bleeding If hemoptysis persists, will hold anticoagulant and consider IVC placement Pulmonology consult (3) Cough with hemoptysis: Had 2 episodes of cough with blood today Lovenox changed to heparin H/H stable Continue monitor (4) Rib pain on right side: Continue percocet and baclofen Pain management on board (5) H/O left knee surgery: S/P left knee surgery done 2 weeks ago Follow up with Ortho (6) Sleep apnea: On Cpap at bedtime DVT px on heparin drip Code status Full code Subjective Pt was seen and examined Sitting, complaint of right side rib spasm Pt said the spasm comes and goes and very intense Associated with SOB when very severe He said that he coughed up blood twice today Denies any chest pain, palpitation and dizziness Physical Exam 2 Vital Signs (Past 24 Hours): Last Vital Signs Temp 38.1 C H 05/31/18 11:47 Pulse 110 H 05/31/18 11:47 Resp 16 05/31/18 11:47 BP 117/72 05/31/18 11:47 Pulse Ox 93 05/31/18 11:47 Physical Exam: General- No acute distress Head- atraumatic Eyes- PERRL, EOMI, ENT- oropharynx clear Neck- supple, no JVD Lungs- clear to auscultation Heart- regular rhythm; no murmur Abdomen- normal bowel sounds, soft, nontender Extremities- no calf tenderness, Left knee swelling Neuro- alert, oriented x 3; PERRL, EOMI; no facial palsy; no dysarthria Skin- warm & dry
[2018-05-31 13:28] LABS: Partial Thromboplastin Ratio 1.8
[2018-05-31 13:30] LABS: Partial Thromboplastin Time 46.9 Seconds (21.0-31.0)
[2018-05-31] MEDS ORDERED: HEPARIN IV BOLUS 4,000 UNITS in SYRINGE 0 ML IV ONE (14:00)
[2018-05-31] MEDS: WARFARIN SOD 5 MG TAB PO SCH (16:04)
--- NOTE | 2018-05-31 18:45 | Consultation Report ---
DATE OF CONSULTATION: 05/31/2018 TIME: 3:50 p.m. REPORT OF CONSULTATION: The patient was seen in room 239 bed 2. He is a 53-year-old male who is being seen because of acute pulmonary emboli. The patient underwent a left knee arthroscopy on 05/17/2018. This was done because of a torn meniscus. He states that he started physical therapy on 05/22/2018. He began to develop pain on 05/26/2018 in the right lower rib cage anterolaterally and then radiating around posteriorly. This became worse. He developed some shortness of breath on the . He subsequently came to the Emergency Room on the . He was evaluated with a CT angio of the chest. This showed bilateral pulmonary emboli that were fairly extensive, especially on the right. The right side involves the right upper and right lower lobes. On the left side, there were some left basilar clots and also smaller emboli in the left upper lobe. Bilateral effusions were seen, greater on the right than the left. There were bibasilar parenchymal infiltrative changes. Subsequently, the patient had a venous Doppler done. This showed acute DVT involving the left posterior tibial vein and also in the left peroneal veins. There was no DVT in the right leg. The patient initially was started on heparin. Subsequently, he was changed to Lovenox with the addition of Coumadin. Today, the patient began with some hemoptysis. About 3 times, he has coughed up some clotted blood that was somewhat dark and about the size of a nickel. The pain on the right side has been his biggest complaint. It is a little better today. He has had some shortness of breath, but not as severe as when he first presented. The patient has no history of blood clotting in the past. He has overall been extremely healthy. He is not aware of blood clotting in his family, but his mother is on Coumadin and he does not know why. He has had mild nausea. He felt that might be related to the pain medicines. He has had no vomiting. He has no history of peptic ulcer disease. He did have reflux in the past that resolved when sleep apnea was treated. He does not have any other significant risk factor for blood clots other than the surgery. PAST SURGICAL HISTORY: 1. Vasectomy. 2. Removal of a lesion of some type from his head about 8-10 years ago. 3. Left knee surgery recently. PAST MEDICAL HISTORY: 1. Obstructive sleep apnea, for which he wears CPAP at 9 cm. 2. GERD, which resolved with wearing CPAP. 3. No history of hypertension, diabetes, cardiac disease, peptic ulcer disease, kidney disease, or liver disease. SOCIAL HISTORY: Tobacco never. ETOH -- occasional beer. ALLERGIES: No known allergies. OCCUPATIONAL HISTORY: The patient works for a [employer]. His work involves utilizing a computer and being essentially sedentary. FAMILY HISTORY: Father , prostate cancer and diverticulitis. Maternal uncle has had prostate cancer. Mother had arthritis and as noted, she is on Coumadin. HOME MEDICATIONS: Cyclobenzaprine, ibuprofen, oxycodone/acetaminophen. REVIEW OF SYSTEMS: Negative except for the complaints noted in the history of present illness. He did have some left calf pain initially but he states that has resolved. Denies other complaints. PHYSICAL EXAMINATION: GENERAL: The patient is a pleasant 53-year-old male who was cooperative, alert, and oriented. He was in no distress at rest. VITAL SIGNS: He is obese. Weight is 129.3 kg with a BMI of 40.9. HEENT: Pupils were reactive to light. Nares were clear. Mouth exam shows prominence of the uvula. There is a small area of whiteness on the uvula. Pharynx would be a Mallampati grade 2. NECK: Palpation of the neck reveals no lymph nodes. HEART: The cardiac rate is 100 per minute. Rhythm is regular. Blood pressure 117/72. Temperature most recently was 38.1. LUNGS: Auscultation of the lung ashley reveals decreased breath sounds in the right base. Egophony was noted at the right base. Percussion revealed dullness at the right base. Saturation was 93% on 2 L nasal cannula. ABDOMEN: Obese. It was soft and nontender. No masses were palpable. EXTREMITIES: Showed +2 edema of the left lower extremity and +1 of the right lower extremity. There were some dressings over the area of his surgery. LABORATORY DATA: White count is 10.3. Hemoglobin 13.6. Platelets 215,000. PTT today is 46.9. INR is 1.1. Electrolytes yesterday showed sodium 133, potassium 4.0, chloride 99, bicarbonate 29. BUN is 17 with a creatinine of 1.13. Blood sugar 100. Calcium 8.63. Magnesium 2.2. Urinalysis showed 1+ bacteria. EKG showed sinus tachycardia with a rate of 104. Rsr' prime was seen in V1 and V2. There was possible left atrial enlargement. Echocardiogram was done yesterday. The right ventricle was normal size. Right ventricular function could not be assessed due to poor image quality. Ejection fraction was 55%-60%. IMPRESSION: 1. Acute pulmonary embolism. 2. Deep venous thrombosis of the left posterior tibial and left peroneal veins. 3. Hemoptysis, likely secondary to pulmonary infarction. COMMENTS AND RECOMMENDATIONS: The patient is currently on IV heparin and he has been started on Coumadin. I agree with the above. I think this is the best way to go considering he is having some hemoptysis. I have asked his nurse to put a cup in his room to collect all sputum that we could quantitate the amount of bleeding if he starts to bring up fresh blood. I am hopeful that does not happen. It has not been fresh blood thus far. I explained all this to the patient and his . I briefly discussed the possibility of a filter if indeed for some reason he had significant bleeding and could not be anticoagulated. We would not consider that otherwise, however. He appears to have had a clot precipitated by the surgery. Treatment would typically be 3-6 months. I discussed the pleural effusion. Hopefully, this will resorb. I explained to the patient and his that it may not and may need followup. For now, I would not attempt to do any thoracentesis or drainage. Thank you for asking me to assist in his care. Case was discussed with Dr. Melendez.
[2018-05-31] MEDS: LIDOCAINE 5% 1 PATCH TD SCH (20:12)
[2018-05-31 20:44] LABS: Partial Thromboplastin Time 52.6 Seconds (21.0-31.0)
[2018-05-31] MEDS: ACETAMINOPHEN 325 MG TAB PO PRN (20:48)
[2018-06-01 06:34] LABS: Hematocrit (blood only) 35.3 % (42-52); Hemoglobin 12.1 g/dL (14.0-18.0); Mean Corpuscular Hgb Conc 34.3 g/dL (32-36); Mean Corpuscular Volume 91.2 fL (80-100); Mean Platelet Volume 8.6 fL (7.4-10.4); Platelet Count 196 K/uL (130-400); RDW Coefficient of Variation 12.5 % (11.5-14.5); Red Blood Count 3.87 M/uL (4.7-6.1); White Blood Count 6.49 K/uL (4.8-10.8)
[2018-06-01 07:05] LABS: BUN Creatinine Ratio 12.1 (10-20); Calcium 8.5 mg/dl (8.5-10.1); Creatinine Clr Calc Pharmacy 119.9 ml/min; Est GFR (Non-African American) 88.9; Potassium 3.8 mmol/L (3.5-5.1)
[2018-06-01 07:20] LABS: INR 1.2 (0.9-1.1); Partial Thromboplastin Ratio 2.4; Prothrombin Time 11.7 Seconds (9.0-12.0)
[2018-06-01 07:39] LABS: Partial Thromboplastin Time 61.1 Seconds (21.0-31.0)
[2018-06-01] MEDS: BACLOFEN 10 MG TAB PO SCH ×3 (08:43→20:24)
[2018-06-01] MEDS: HEPARIN STANDARD DEXTROSE 25,000 UNITS/500 ML IV SCH ×2 (08:47→20:28)
[2018-06-01] MEDS: WARFARIN SOD 5 MG TAB PO SCH (15:43)
--- NOTE | 2018-06-01 18:50 | Progress Note ---
DATE: 06/01/2018 TIME: 6:25 p.m. SUBJECTIVE: The patient is still coughing up small quantities of dark blood. The cuff from more than 24 hours ago shows dark clotted up blood and it is less than 5 mL. The chest tightness and spasms he was having have resolved. He denies significant shortness of breath. OBJECTIVE: GENERAL: The patient appeared comfortable. VITAL SIGNS: Temperature is 36.8. He did have a fever earlier today of 38.3 at 7:36 a.m. Heart rate is 100 per minute. Rhythm is regular. Blood pressure 142/80. LUNGS: Lung ashley were clear. Respiratory rate 18, saturation 93% on room air. EXTREMITIES: Showed persistence of mild edema. No cyanosis or clubbing noted. LABORATORY DATA: White count today was 6.49. Hemoglobin 12.1. Platelets 196,000. The INR today is only 1.2. PTT was 61.1. Electrolytes show sodium 133, potassium 3.8, chloride 101, bicarbonate 29. The BUN was 12 with a creatinine of 0.98. IMPRESSION: 1. Acute pulmonary embolism. 2. Deep vein thrombosis. 3. Hemoptysis -- likely secondary to pulmonary infarction. 4. Pleural effusion. COMMENTS AND RECOMMENDATIONS: The patient seems to be doing reasonably well. The hemoptysis shows no fresh blood and the amount of bleeding is small. His heart rate still seems a little higher than desirable and the blood pressure is perhaps slightly higher than desirable. I expected the blood pressure to come down more now that the pain has resolved. Consideration could be given to increasing the Coumadin dose somewhat in the hopes of increasing the INR a bit, which has not moved thus far. Perhaps 7.5 mg would be appropriate. The patient of course is somewhat anxious for discharge. Ideally, I would like to see the fevers resolved and the hemoptysis resolved prior. The fevers are probably secondary to the pulmonary infarction. It is difficult to totally exclude some degree of pneumonic infiltrate. Could consider an antibiotic such as Augmentin.
--- NOTE | 2018-06-01 19:31 | Hospitalist Progress Note ---
Date of Service June 01, 2018 Assessment & Plan (1) Bilateral pulmonary embolism: (2) DVT of lower limb, acute: Provoked DVT from recent left knee surgery for meniscal tear CTA chest showed bilateral rather extensive pulmonary emboli. Doppler U/S showed acute deep venous thrombosis in the left posterior tibial vein and one of two duplicated left peroneal veins Was starting on Lovenox therapeutic dose, that was changed to heparin drip after pt developed hemoptysis from coughing Anticoagulant risk discussed with patient such as bleeding Continue comuadin, INR 1.2 today Will consider lovenox bridge with coumadin tomorrow if hemoptysis resolved on discharge since pt would like to go home Pulmonology on board (3) Cough with hemoptysis: Had 2 episodes of cough with blood today Lovenox changed to heparin H/H stable Continue monitor Clinically improves (4) Rib pain on right side: Continue percocet and baclofen Pain management on board Resolved (5) H/O left knee surgery: S/P left knee surgery done 2 weeks ago Follow up with Ortho (6) Sleep apnea: On Cpap at bedtime DVT px on heparin drip Code status Full code Subjective Pt was seen and examined Lying in bed with no distress Pt said that he feels much better He said that he does not have the rib spasm/pain today He said that the hemoptysis improves denies any chest pain,palpitation and SOB Physical Exam 2 Vital Signs (Past 24 Hours): Last Vital Signs Temp 36.8 C 06/01/18 15:47 Pulse 101 H 06/01/18 15:47 Resp 18 06/01/18 15:47 BP 142/80 H 06/01/18 15:47 Pulse Ox 93 06/01/18 15:47 Physical Exam: General- No acute distress Head- atraumatic Eyes- PERRL, EOMI, ENT- oropharynx clear Neck- supple, no JVD Lungs- clear to auscultation Heart- +tachycardia; no murmur Abdomen- normal bowel sounds, soft, nontender Extremities- no calf tenderness, Left knee swelling Neuro- alert, oriented x 3; PERRL, EOMI; no facial palsy; no dysarthria Skin- warm & dry
[2018-06-01] MEDS: ACETAMINOPHEN 325 MG TAB PO PRN (19:47)
[2018-06-01] MEDS: LIDOCAINE 5% 1 PATCH TD SCH (20:25)
[2018-06-02] MEDS: ACETAMINOPHEN 325 MG TAB PO PRN (06:42)
[2018-06-02 07:01] LABS: Mean Corpuscular Hgb Conc 33.3 g/dL (32-36); Mean Corpuscular Volume 92.1 fL (80-100); Mean Platelet Volume 9.1 fL (7.4-10.4); Platelet Count 226 K/uL (130-400); RDW Coefficient of Variation 12.8 % (11.5-14.5); RDW Standard Deviation 43.4 fL (36.4-46.3); Red Blood Count 3.91 M/uL (4.7-6.1); White Blood Count 4.87 K/uL (4.8-10.8)
[2018-06-02 07:27] LABS: INR 1.2 (0.9-1.1); Prothrombin Time 11.7 Seconds (9.0-12.0)
[2018-06-02 07:28] LABS: Partial Thromboplastin Time 52.5 Seconds (21.0-31.0)
[2018-06-02] MEDS: BACLOFEN 10 MG TAB PO SCH ×3 (08:08→20:30)
[2018-06-02] MEDS: HEPARIN STANDARD DEXTROSE 25,000 UNITS/500 ML IV SCH ×2 (10:07→22:54)
--- NOTE | 2018-06-02 12:03 | Hospitalist Progress Note ---
Date of Service June 02, 2018 Assessment & Plan (1) Bilateral pulmonary embolism: (2) DVT of lower limb, acute: Provoked DVT from recent left knee surgery for meniscal tear CTA chest showed bilateral rather extensive pulmonary emboli. Doppler U/S showed acute deep venous thrombosis in the left posterior tibial vein and one of two duplicated left peroneal veins Was starting on Lovenox therapeutic dose, that was changed to heparin drip after pt developed hemoptysis from coughing Anticoagulant risk discussed with patient such as bleeding Comuadin increased to 7.5 mg, INR 1.2 today Will consider lovenox bridge with coumadin tomorrow if hemoptysis resolved on discharge since pt would like to go home Case discussed with Pumonology (3) Cough with hemoptysis: Had 2 episodes of cough with blood today Lovenox changed to heparin H/H stable Continue monitor Clinically improves (4) Rib pain on right side: Continue percocet and baclofen Pain management on board Resolved (5) H/O left knee surgery: S/P left knee surgery done 2 weeks ago Will removed his stitches while in the hospital Follow up with Ortho (6) Tachycardia: Mostly due to PE and fever HR improves at rest Continue monitor (7) Fever: Mostly due to PE and DVT CXR showed low lung volumes with extensive bibasilar opacities greater on the right. This could represent evolving pulmonary infarcts or pulmonary hemorrhage. No leukocytosis Urine cx contaminated If fever persists, will collect blood cx case discussed with Pulmonology recommended a course of abx Continue monitor (8) Sleep apnea: On Cpap at bedtime DVT px on heparin drip Code status Full code Subjective Pt was seen and examined Sitting in chair comfortable with no distress Pt said that his breathing improves He said that he only has a very mild right side rib spasm early this morning He said that he has not been coughing much blood and starting to get cleared he was walking in the hallway early and HR increased above 110's He had a fever early this morning Denies any chest pain, palpitation, dizziness and SOB Physical Exam 2 Vital Signs (Past 24 Hours): Last Vital Signs Temp 38.1 C H 06/02/18 06:41 Pulse 86 06/02/18 07:50 Resp 18 06/02/18 06:41 BP 144/91 H 06/02/18 06:41 Pulse Ox 91 06/02/18 06:41 Physical Exam: General- No acute distress Head- atraumatic Eyes- PERRL, EOMI, ENT- oropharynx clear Neck- supple, no JVD Lungs- clear to auscultation Heart- +tachycardia; no murmur Abdomen- normal bowel sounds, soft, nontender Extremities- no calf tenderness, Left knee swelling Neuro- alert, oriented x 3; PERRL, EOMI; no facial palsy; no dysarthria Skin- warm & dry
[2018-06-02] MEDS ORDERED: WARFARIN SOD 7.5 MG TAB PO SCH (16:00)
--- NOTE | 2018-06-02 17:20 | Progress Note ---
DATE: 06/02/2018 SUBJECTIVE: The patient is feeling better. He has had a scant amount of hemoptysis. It has been almost none. He did ambulate in the hallway today without difficulty, although his heart rate still went up reportedly to between 110 and 120. He has had some intermittent fevers. Temperature at 6:40 a.m. today was 38.1. Last evening, his temperature went up to 39.3. He apparently was not symptomatic during these episodes. OBJECTIVE: VITAL SIGNS: The patient appears comfortable at rest. He was cooperative, alert, and oriented. ENT: Unremarkable. CARDIOVASCULAR: Heart rate 85 per minute. Rhythm regular. Blood pressure 118/72. RESPIRATORY: Lung ashley reveal mild rales in the right posterior lateral chest area. Respiratory rate 16. Saturation 94% on room air. EXTREMITIES: Reveal still some edema, especially on the left. LABORATORY DATA: White count today was 4.87, hemoglobin 12, platelets 226,000. It is somewhat surprising that the white count has been decreasing so much. INR today is still only 1.2. PTT was 52.5. IMPRESSION: 1. Acute pulmonary embolism. 2. Deep venous thrombosis on the left. 3. Hemoptysis, decreasing. 4. Right pleural effusion. COMMENTS AND RECOMMENDATIONS: The patient clinically seems to be doing much better. The fevers are somewhat bothersome. We have been assuming that the fever was from the pulmonary infarction and it may well be. I was surprised that the temperature went above 39. I have suggested that he be placed on Augmentin in the event he has superimposed pneumonia. The INR has not been increasing very quickly. Case was discussed with Dr. Melendez. He is planning on switching the patient to Lovenox in order to expedite discharge. I do not think he is ready for discharge today, however. I would like to see the temperature pattern better. Clinically, he is looking improved. He still has some tachycardia somewhat more than expected. I am sure the patient will be following up with a Coumadin clinic.
[2018-06-02] MEDS: AMOXICILLIN/CLAVULANATE 875 MG TAB PO SCH (17:51)
[2018-06-02] MEDS: LIDOCAINE 5% 1 PATCH TD SCH (20:30)
[2018-06-03 07:08] LABS: INR 1.3 (0.9-1.1); Partial Thromboplastin Ratio 2.7; Prothrombin Time 12.7 Seconds (9.0-12.0)
[2018-06-03 07:09] LABS: Partial Thromboplastin Time 69.2 Seconds (21.0-31.0)
[2018-06-03] MEDS: AMOXICILLIN/CLAVULANATE 875 MG TAB PO SCH (07:58)
[2018-06-03] MEDS: BACLOFEN 10 MG TAB PO SCH (07:58)
--- NOTE | 2018-06-03 11:36 | Hospitalist Progress Note ---
Date of Service June 03, 2018 Assessment & Plan (1) Bilateral pulmonary embolism: (2) DVT of lower limb, acute: Provoked DVT from recent left knee surgery for meniscal tear CTA chest showed bilateral rather extensive pulmonary emboli. Doppler U/S showed acute deep venous thrombosis in the left posterior tibial vein and one of two duplicated left peroneal veins Was starting on Lovenox therapeutic dose, that was changed to heparin drip after pt developed hemoptysis from coughing Anticoagulant risks discussed with patient such as bleeding Continue coumadin 7.5 mg, INR 1.3 today Will consider discharge on lovenox bridge with coumadin Case discussed with Pumonology Check INR on Tuesday Follow up with the [facility] (3) Cough with hemoptysis: Had 2 episodes of cough with blood today Lovenox changed to heparin H/H stable Continue monitor Resolved (4) Rib pain on right side: Continue percocet and baclofen Pain management on board Resolved (5) H/O left knee surgery: S/P left knee surgery done 2 weeks ago Stitches removed while in the hospital Follow up with Ortho next (6) Tachycardia: Mostly due to PE and fever Resolved (7) Fever: Mostly due to PE and DVT CXR showed low lung volumes with extensive bibasilar opacities greater on the right. This could represent evolving pulmonary infarcts or pulmonary hemorrhage. No leukocytosis Urine cx contaminated If fever persists, will collect blood cx Has been afebrile since yesterday case discussed with Pulmonology recommended a course of abx Will complete course of Augmentin Stable (8) Sleep apnea: On Cpap at bedtime DVT px on heparin drip Code status Full code Disposition Follow up with your PCP Dr. Mccartney on 04/07 @ 10:45 AM Follow up with ortho on Follow up with the [facility] clinic ( Clinic will call you for the appointment) Check PT/INR on Tuesday Subjective Pt was seen and examined Sitting at the egde of the bed with no distress Pt said that he feels fine He said that he has not been coughing any blood since yesterday He has been afebrile since yesterday Denies any chest pain, palpitation, dizziness and SOB Physical Exam 2 Vital Signs (Past 24 Hours): Last Vital Signs Temp 36.5 C 06/03/18 08:09 Pulse 83 06/03/18 10:56 Resp 18 06/03/18 08:09 BP 124/73 06/03/18 08:09 Pulse Ox 98 06/03/18 08:09 Physical Exam: General- No acute distress Head- atraumatic Eyes- PERRL, EOMI, ENT- oropharynx clear Neck- supple, no JVD Lungs- clear to auscultation Heart- regular; no murmur Abdomen- normal bowel sounds, soft, nontender Extremities- no calf tenderness Neuro- alert, oriented x 3; PERRL, EOMI; no facial palsy; no dysarthria Skin- warm & dry
[2018-06-03] MEDS ORDERED: ENOXAPARIN 150 MG/ML SYR SQ SCH (12:00)
[2018-06-03] MEDS ORDERED: ENOXAPARIN 1 MG/KG SQ SCH (12:00)
--- NOTE | 2018-06-05 08:26 | Discharge Summary ---
Date of Service June 05, 2018 Admission HPI Per Admitting Provider CHIEF COMPLAINT: Shortness of breath and chest muscle spasms, found to be in acute PE. HISTORY OF PRESENT ILLNESS: This is a 53-year-old male with past medical history of significant obstructive sleep apnea on CPAP, no other medical problems, recently on 05/17/2018 had left knee surgery for meniscal tear at [facility], after that he did fine. He went to physical therapy. He just finished his physical therapy on Tuesday. He was walking okay, but since Tuesday, he was feeling he was getting spasms in his chest and also short of breath. Intially worried about blood clots but as his spasms are coming and going they did not come to the hospital but today it became so severe and the pain became so worse, patient was brought into the ER and a CAT scan showing bilateral extensive PE, but there is no saddle embolus. The patient received significant pain medications and also still complains mainly of spasms. His sitting,says lying down is making spasms worse.Has some mild dry cough from his dryness in throat. No nausea, no vomiting, no headaches, no blurred visions, no earache, no runny nose, no sore throat, no difficulty swallowing. Appetite is okay. No night sweats. No recent weight gain or weight loss. No abdominal pain. Normal bowel and bladder movements. No blood in the stools, no black stools, no blood in the urine. Left knee surgical site is healing. No erythema is seen. No lower extremity edema seen. Admission Exam Per Admitting Provider GENERAL: The patient is obese, not in acute distress. VITAL SIGNS: Temperature 36.9, pulse 97, respiratory rate 30, blood pressure 108/66, oxygen 96% room air. HEENT: No pallor, no icterus. Pupils equal, round, and react to light. NECK: No JVD, no neck masses, no carotid bruit. CARDIOVASCULAR: S1, S2 heard. Regular rate and rhythm. Tachycardia. No murmurs. RESPIRATORY SYSTEM: Normal AP diameter. No accessory muscle use. No wheezing , no crackles. ABDOMEN: Soft, bowel sounds present. Nontender. No distention. CENTRAL NERVOUS SYSTEM: Cranial nerves II-XII grossly intact. Nonfocal. EXTREMITIES: Left knee arthroscopy site sutures seen. No erythema or drainage seen. No edema or erythema in the lower extremities. Principal Diagnosis Bilateral pulmonary embolism Acute DVT of lower limb Cough with Hemoptysis Tachycardia Discharge Exam General- No acute distress Head- atraumatic Eyes- PERRL, EOMI, ENT- oropharynx clear Neck- supple, no JVD Lungs- clear to auscultation Heart- regular; no murmur Abdomen- normal bowel sounds, soft, nontender Extremities- no calf tenderness Neuro- alert, oriented x 3; PERRL, EOMI; no facial palsy; no dysarthria Skin- warm & dry Discharge Data Allergies Allergy/AdvReac Type Severity Reaction Status Date / Time No Known Allergies Allergy Verified 05/29/18 20:38 Consultations 05/29/18 21:22 ED Decision to Admit Stat 05/30/18 01:38 Consult Case Management - Discharge Planning Routine 05/31/18 08:00 Consult Pain Management Routine 05/31/18 12:43 Consult Pulmonology Routine Ordered Studies 05/29/18 20:00 CT angio chest PE protocol Stat 05/30/18 01:38 US venous doppler LE BI Routine XR chest 1V portable CLINICAL HISTORY: 53 years-old Male presenting with hemoptysis. TECHNIQUE: Portable upright AP view of the chest was obtained. COMPARISON: CTA from 05/29/2018. FINDINGS: Cardiac silhouette enlarged. Low lung volumes with bibasilar hazy opacities, which are rather extensive and greater on the right. Bilateral pleural effusions also greater on the right. No pneumothorax. Degenerative changes of the thoracic spine. Upper abdomen normal. IMPRESSION: 1. Low lung volumes with extensive bibasilar opacities greater on the right. This could represent evolving pulmonary infarcts or pulmonary hemorrhage. 2. Pleural effusions greater on the right. Electronically signed by: Joseph Lobo M.D. 05/31/2018 7:23 AM Dictated: 05/31/1821 Transcribed: 05/31/18720 US venous doppler LE BI CLINICAL HISTORY: 53 years-old Male presenting with pulmonary embolism, evaluate for dvt. TECHNIQUE: Real-time grayscale and color and spectral Doppler ultrasound imaging of the veins of the bilateral lower extremities was performed. Compression and augmentation were also utilized. COMPARISON: None. FINDINGS: RIGHT: Common femoral vein: Patent. Greater saphenous vein (superficial): Patent. Deep femoral vein: Patent. Femoral vein: Patent. Popliteal vein: Patent. Calf veins: Patent. LEFT: Common femoral vein: Patent. Greater saphenous vein (superficial): Patent. Deep femoral vein: Patent. Femoral vein: Patent. Popliteal vein: Patent. Calf veins: Filling defect consistent with thrombus in the left posterior tibial vein and one of two duplicated left peroneal veins. Other: None. IMPRESSION: 1. Acute deep venous thrombosis in the left posterior tibial vein and one of two duplicated left peroneal veins. 2. No deep venous thrombosis in the right lower extremity. Electronically signed by: Joseph Lobo M.D. 05/30/2018 11:19 AM Dictated: 05/30/18 1117 Transcribed: 05/30/181116 CT angio chest PE protocol CT DOSE: 695.77 mGy.cm HISTORY: Pulmonary embolus PE TECHNIQUE: Multiaxial CT images of the chest were performed following the intravenous administration of contrast to evaluate the pulmonary arteries. Maximal intensity projection images were also obtained. A dose lowering technique was utilized adhering to the principles of ALARA. COMPARISON STUDY: None. FINDINGS: Study is positive for bilateral pulmonary emboli. On the right there are emboli involving the right upper as well as right lower lobe distributions. On the left there are multiple emboli involving the left basilar arterial distribution. There are also findings of smaller emboli involving the left upper lobe distribution. Area the thoracic aorta is normal in course and caliber. There is no evidence for a central or saddle pulmonary embolus. There are bilateral pleural effusions. There are infiltrative changes in the right and to lesser extent left base. IMPRESSION: 1. Study is positive for bilateral rather extensive pulmonary emboli. 2. No evidence for a central/saddle pulmonary embolus. 3. Right and to lesser extent left pleural effusion. 4. Bibasilar parenchymal infiltrative change. The above report was generated using voice recognition software. It may contain grammatical, syntax or spelling errors. Electronically signed by: Felipe Snell M.D. 05/29/2018 9:08 PM Dictated: 05/29/182104 Transcribed: 05/29/182104 Hospital Course (1) Bilateral pulmonary embolism: (2) DVT of lower limb, acute: Provoked DVT from recent left knee surgery for meniscal tear CTA chest showed bilateral rather extensive pulmonary emboli. Doppler U/S showed acute deep venous thrombosis in the left posterior tibial vein and one of two duplicated left peroneal veins Was starting on Lovenox therapeutic dose, that was changed to heparin drip after pt developed hemoptysis from coughing Anticoagulant risks discussed with patient such as bleeding Continue coumadin 7.5 mg, INR 1.3 today Will consider discharge on lovenox bridge with coumadin Case discussed with Pumonology Check INR on Tuesday Follow up with the [facility] clinic (3) Cough with hemoptysis: Had 2 episodes of cough with blood today Lovenox changed to heparin H/H stable Continue monitor Resolved (4) Rib pain on right side: Continue percocet and baclofen Pain management on board Resolved (5) H/O left knee surgery: S/P left knee surgery done 2 weeks ago Stitches removed while in the hospital Follow up with Ortho next (6) Tachycardia: Mostly due to PE and fever Resolved (7) Fever: Mostly due to PE and DVT CXR showed low lung volumes with extensive bibasilar opacities greater on the right. This could represent evolving pulmonary infarcts or pulmonary hemorrhage. No leukocytosis Urine cx contaminated If fever persists, will collect blood cx Has been afebrile since yesterday case discussed with Pulmonology recommended a course of abx Will complete course of Augmentin Stable (8) Sleep apnea: On Cpap at bedtime DVT px on heparin drip changed to lovenox bridge with coumadin Code status Full code Disposition Follow up with your PCP Dr. Mccartney on 04/07 @ 10:45 AM Follow up with ortho on Follow up with the [facility] clinic ( Clinic will call you for the appointment) Check PT/INR on Tuesday Total Time Total Time Spent Total Time Spent (In Minutes): 35 minutes Total Time Includes: Examination of the Patient, Discharge Planning, Medication Reconciliation, Communication With Other Providers and Other Discharge Plan Discharge Items Patient Disposition: Home - Self-Care Reason For Visit: CHEST SPASMS, SOB Discharge Diagnosis: Bilateral pulmonary embolism, DVT of lower limb, acute, cough with Hemoptysis, Tachycardia Discharge Goals: Decrease discomfort, Improve disease control, Improve function and Increase independence Activity: Resume your previous activity Activity Comment: As tolerated Non-emergency contact: Primary Care Provider Call non-emergency contact if: you have any medication questions and your temperature is above 101 Diet: Regular Addtl Provider Instructions: Follow up with your primary care provider Dr. Mccartney on 04/07 @ 10:45 AM Follow up with ortho on (Already had an appointment) Follow up with the coumadin clinic ( Clinic will call you for the appointment) Check PT/INR on Tuesday (INR today 1.3, goal between 2-3) Continue Lovenox injection until instructing by the coumadin clinic to discontinue it Monitor for any abnormal bleeding such as blood in your urine or stool (Please notify your physician if you develop any. Complete the course of the antibiotic with Augmentin. Medication Instructions: Coumadin Warfarin is a medicine prescribed to prevent blood clots Warfarin will thin your blood and help prevent new clots Take your medications exactly as directed Never skip a dose. Never take a double dose. If you miss a dose, take it as soon as you remember It is important for your doctor to monitor your prothrombin time (PT). This is a lab test Keep your appointment for lab tests Risk of Adverse Drug Reactions and Interactions: Warfarin increases your risk of bleeding The food you eat and other medications you take can affect how Warfarin works in your body It is very important to talk with your doctor about all of the other medicines, antibiotics, vitamins or herbal products that you are taking. All of your medication must be approved by your doctor, including new medicines , as well as medicines you have taken before you started taking Warfarin Avoid NSAIDs (Motrin, Aleve, Naproxen, Ibuprofen, Advil, Meloxicam,..) due to risks of bleeding Diet: In order for Warfarin to work properly, it is important to keep your intake of Vitamin K as consistent as possible. You should avoid any sudden change in Vitamin K intake Report any significant changes in your diet or weight to your doctor Call your Primary Care doctor if you experience any of the following: Swelling or Pain in your leg Sudden, continuous pain deep in a muscle Pain that worsens when you are active or when you stand still for a long time Chest Pain Sudden Shortness of Breath Rapid or pounding heart beat Fainting Dizziness Cough with blood or bloody sputum Sweating more than normal Bruises Heavy or uncontrolled bleeding Blood in your urine, stool or vomit Black or tarry stools Caring for Your Self at Home: Avoid sitting, standing or lying down for long periods without moving your legs and feet When traveling by car, stop to get out and move around at least once every 3 hours On long airplane, train or bus rides, get up and move around when possible If you can't get up, wiggle your toes and tighten your calves to keep your blood moving Follow Up: It is important for you to keep your follow up appointments with your medical provider. Prescriptions: New warfarin [Coumadin] 7.5 mg Tablet 7.5 mg PO DAILY@1600 Qty: 30 RF: 0 amoxicillin-pot clavulanate 875-125 mg Tablet 1 tab PO BIDM 5 Days Qty: 10 RF: 0 enoxaparin [Lovenox] 120 mg/0.8 mL syringe 120 mg SQ Q12H 4 Days Qty: 6.4 RF: 0 baclofen 10 mg Tablet 10 mg PO TID PRN (Reason: muscle spasm) Qty: 30 RF: 0 Continue oxycodone-acetaminophen 5-325 mg tablet 1 tab PO BID PRN (Reason: Pain) RF: 0 Discontinued cyclobenzaprine 5 mg tablet 5 mg PO TID PRN (Reason: muscle spasm) Qty: 30 RF: 0 ibuprofen 200 mg Tablet 400 mg PO BID PRN (Reason: Pain) RF: 0 Stand-Alone Forms: [facility] Discharge Orders: Discharge Order (Routine); Ordered 06/03/18 Ordered By: Shawna Melendez Admission Data Admit Date/Time: 05/30/18 00:12 Attending Provider: Shawna Melendez Admit Provider: Jayson Garcia Primary Care Provider: William Mccartney Other Providers: Jayson Garcia ; Ever Gordon ; Bárbara Lima ; Luke Guardado Service: Telemetry Other Interventions: Discharge Summary Assessment (RN) Last Done: 06/03/18 12:10 DC Date/Time DO NOT enter until pt leaves facility: 06/03/18 13:29
--- NOTE | 2018-06-05 13:17 | Progress Note ---
DATE: 06/03/2018 PROBLEM LIST: Includes; 1. Acute pulmonary embolism. 2. DVT on the left. 3. Hemoptysis, which is improving. 4. Right pleural effusion. SUBJECTIVE: Patient continues to do well. He was kept overnight due to fever. His temperature was good overnight. He was started on Augmentin yesterday. His tachycardia has improved as well. At this point, he is feeling well and feels that he is ready to go home. He did have some cough. He still is getting some trace blood with the cough. Denies any shortness of breath, denies any wheezing, denies any chest heaviness or tightness. He has been up and ambulating. No GI symptoms, no nausea or vomiting, no indigestion or heartburn, no chest pain or palpitations. He does continue to have some swelling in his extremities. OBJECTIVE: GENERAL: Patient is a 53-year-old male sitting at bedside. He is alert and oriented x3. Mood is good. Affect is good. VITAL SIGNS: Temperature 36.5, pulse 104, respirations 18, blood pressure is 144/91, pulse oximetry 98% on room air. HEENT: Normocephalic and atraumatic. Pupils equal, round, and reactive to light and accommodation. Extraocular movements are intact. [place] and moist gingival and buccal mucosa. NECK: Supple. There is no mass, no adenopathy, no bruit. CHEST: Diminished breath sounds bilaterally. No wheeze, rales, or rhonchi noted. CARDIOVASCULAR: Regular rate and rhythm. No murmurs, gallops, or rubs. ABDOMEN: Soft and nontender. No guarding, rigidity, or organomegaly. EXTREMITIES: Patient has trace edema bilaterally with a little bit increase on the left. No erythema noted. LABORATORY DATA: INR of 1.3. IMPRESSION: Acute pulmonary embolism with deep venous thrombosis on the left. PLAN: Patient will be sent home with Lovenox and switched over to Coumadin. He will be followed in the Coumadin Clinic through [facility]. At this point, he will have a followup appointment with Dr. Mccartney, who is his PCP, and if Dr. Mccartney would like, we will see the patient in followup as well. They can contact the office and get an appointment setup. Would recommend that he continue course of Augmentin, continue rest of his medications as they are.
== END 2018-06-03 13:29 | disposition home or self-care (01) | DRG 176 ==
LOC: EDSEX → ED 19:35 → 2S 05-30 00:12 → SUATTDRO 05-30 00:12 → 2S 05-30 00:55